=== PATIENT | female | born 1970 | race Two or more races ===

== ENCOUNTER 2022-04-12 11:22 | Outpatient (REF) | payer MEDICAID, SELFPAY ==
--- NOTE | ~2022-04-12 | XR_ITS ---
EXAMINATION: XR CHEST 2 VIEWS CLINICAL INFORMATION: Chronic cough. COMPARISON: None. TECHNIQUE: Frontal and lateral views of the chest were obtained. FINDINGS: The heart, great vessels, pulmonary vasculature and mediastinum are normal. The lungs show no focal infiltrate, effusion or pneumothorax. There is mild bronchiolar wall thickening. There is no acute osseous abnormality. XR/XR chest 2V IMPRESSION: 1. No focal infiltrate or congestive heart failure is seen. 2. There is mild bronchiolar wall thickening, which can be associated with acute bronchiolitis or reactive airways disease.
== END 2022-04-12 11:23 | disposition home or self-care (01) ==
LOC: HO.XRAY 11:22
PROVIDERS: Visit Provider Internal Medicine Geriatric Medicine
DX: R05.3 Chronic cough (principal)
CPT/HCPCS: 71046